=== PATIENT | female | born 1995 | race African-American/Black ===

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

== ENCOUNTER 2017-06-05 11:25 | Emergency (ER) | payer SELFPAY ==
[~2017-06-05] VITALS: Ht 170.2 cm; Wt 100.0 kg
[~2017-06-05 11:25] MED LIST: IBUP1TAB7 PO
[2017-06-05 11:35] VITALS: BP 118/66; PULSE 83; RESP 16; TEMP 98; O2SAT 100
[2017-06-05 12:46] LABS: BILIRUBIN, URINE NEG (NEG); BLOOD, URINE NEG (NEG); GLUCOSE,URINE NEG (NEG); KETONE, URINE TRACE mg/dL (NEG); MUCUS URINE FEW /lpf (OCC); NITRITE,URINE NEG (NEG); PH, URINE 6.5 (5.0-8.5); SQUAMOUS EPITHELIAL CELL URINE 4 /hpf (0-5); URINE COLOR YELLOW (YELLW/STRAW); URINE LEUKOCYTE ESTERASE NEG (NEG)
--- NOTE | 2017-06-05 13:43 | PD ---
HPI Chief Complaint: [employer] Sales[employer] Problem/Complaint Time Seen by Provider: 12:03 Travel History International Travel<30 days: No Contact w/Intl Traveler<30days: No Traveled to known affect area: No History of Present Illness HPI Patient is a 22-year-old female presents emergency department for evaluation of vaginal discharge. She states she has a new partner but does not think there is any STD concern. She states that symptoms started a few days ago, not associate with any abdominal pain nausea vomiting diarrhea constipation or fevers, mild, white discharge. Patient is also noticed that there is a small bump in the inferior/posterior portion of her vaginal introitus. She states it has been draining anything PFSH Past Medical History ?: Not LMP: MAY 2017 Social History Alcohol Use: No Tobacco Use: No Allergies-Medications (Allergen,Severity, Reaction): Coded Allergies: No Known Allergies (Unverified , 09/28/16) Reported Meds & Prescriptions Reported Meds & Active Scripts Active Flagyl (Metronidazole) 500 Mg Tab 500 Mg PO BID 7 Days Ibuprofen 800 Mg Tab 800 Mg PO Q6HR PRN Review of Systems Except as stated in HPI: all other systems reviewed are Neg Physical Exam Narrative GENERAL: Well-nourished, well-developed patient. SKIN: Focused skin assessment warm/dry. HEAD: Normocephalic. EYES: No scleral icterus. No injection or drainage. NECK: Supple, trachea midline. No JVD or lymphadenopathy. CARDIOVASCULAR: Regular rate and rhythm without murmurs, gallops, or rubs. RESPIRATORY: Breath sounds equal bilaterally. No accessory muscle use. GASTROINTESTINAL: Abdomen soft, non-tender, nondistended. Genitourinary: Exam performed with female nurse choker hooker present all times, the bump of the patient is experiencing appears to be a small protrusion of normal vaginal mucosa at the inferior portion of the vaginal vault at the 6 o' clock position. I would even call this significant enough to call it a prolapse. Do not appreciate any abscess herpes lesion, syphilis lesion or chancroid lesion. Internal examination does show some white discharge consistent with BV, no cervical motion tenderness, no cervical discharge. MUSCULOSKELETAL: No cyanosis, or edema. BACK: Nontender without obvious deformity. No CVA tenderness. Data Data Last Documented VS Vital Signs Date Time Temp Pulse Resp B/P (MAP) Pulse Ox O2 Delivery O2 Flow Rate FiO2 06/05/17 11:35 98.0 83 16 118/66 (83) 100 Orders Orders Urinalysis - C+S If Indicated (06/05/17 12:04) Ed Urine Pregnancytest Poc (06/05/17 12:04) Wet Prep Profile (06/05/17 12:49) Gc And Chlamydia Pcr (06/05/17 12:49) Ed Discharge Order (06/05/17 13:44) Labs Laboratory Tests Test 06/05/17 12:24 06/05/17 12:52 Urine Color YELLOW Urine Turbidity CLEAR Urine pH 6.5 Urine Specific [place] 1.013 Urine Protein TRACE mg/dL Urine Glucose (UA) NEG mg/dL Urine Ketones TRACE mg/dL Urine Occult Blood NEG Urine Nitrite NEG Urine Bilirubin NEG Urine Urobilinogen LESS THAN 2.0 MG/DL Urine Leukocyte Esterase NEG Urine RBC LESS THAN 1 /hpf Urine WBC 2 /hpf Urine Squamous Epithelial Cells 4 /hpf Urine Mucus FEW /lpf Microscopic Urinalysis Comment CULT NOT INDICATED Clue Cells (Wet Prep) PRESENT Vaginal Trichomonas (Wet Prep) NONE SEEN Vaginal Yeast (Wet Prep) NONE SEEN Chlamydia trachomatis DNA (PCR) NOT DETECTED Neisseria gonorrhoeae DNA (PCR) NOT DETECTED MDM Medical Decision Making Medical Screen Exam Complete: Yes Emergency Medical Condition: Yes Differential Diagnosis BV, CV, STD, Narrative Course Patient room to the emergency department, sign symptoms consistent with BV, was tested for STDs, offered empiric treatment and she would like to wait to see what her results are, otherwise discussed cleanliness prior to 6, she is stable for discharge. 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 Diagnosis Primary Impression: Bacterial vaginosis Med/Other Pt SpecificInfo: Prescription(s) given Scripts Metronidazole (Flagyl) 500 Mg Tab 500 MG PO BID for Infection for 7 Days, #14 TAB 0 Refills Prov: Mikel Lundberg MD 06/05/17 Disposition: 01 DISCHARGE HOME Condition: Stable Mikel Lundberg MD Jun 05, 2017 13:43
[2017-06-05] MEDS ORDERED: METR-1 PO (13:44)
== END 2017-06-05 14:08 | disposition home or self-care (01) ==
LOC: NEPD 11:25
DX: N76.0 Acute vaginitis (principal)
CPT/HCPCS: 81001; 84703; 87210; 87491; 87591; 99284